=== PATIENT | female | born 1965 | race Caucasian/White ===

== ENCOUNTER → 2024-03-12 11:56 | Outpatient (CLI) | payer OTHER, SELFPAY ==
--- NOTE | 2024-03-12 13:31 | DI.CT.S_ITS ---
PROCEDURE: CT CHEST ABD PEL W CON INDICATIONS: MALIGNANT MELANOMA, METASTATIC TECHNIQUE: After the administration of intravenous contrast, 5 mm thick sections acquired from the lung apices to the symphysis. 5 mm coronal and sagittal reformats were performed, with additional 7 mm MIP reformats through the lungs. For radiation dose reduction, the following was used: automated exposure control, adjustment of mA and/or kV according to patient size. COMPARISON: Outside Facility, CT, CT CHEST ABD PEL WO CON, 07/09/2018, 9:31. FINDINGS: Image quality: Excellent. CHEST: Lower Neck: No enlarged lymph nodes. Thyroid: Normal CT appearance. Axillae: No enlarged lymph nodes. Chest Wall: No suspicious chest wall lesions. Lungs and Pleura: There is a new round, solid, spiculated, 7 mm nodule in the right lung base, 5/272. There is a new 4 mm solid subpleural nodule in the anterior left upper lobe, 5/171. Several scattered areas of focal fissural thickening bilaterally, presumably intrapulmonary lymph nodes. A small area of slightly irregular pleural thickening is present in the right lower lung posteriorly, 5/260. No pleural effusions. Central and peripheral airways are normal without bronchial wall thickening or bronchiectasis. Heart: Heart size is normal. No pericardial effusion. Thoracic Vessels: The aorta and pulmonary arteries demonstrate normal size. Mediastinum and Silvina: No enlarged lymph nodes. Esophagus: No wall thickening. Tiny hiatal hernia. ABDOMEN: Liver: Hypodense lesion at the liver dome with irregular margins and nodular peripheral enhancement measures 1.8 cm, presumably a hemangioma. Several subcentimeter scattered hypodensities in the right hepatic lobe too small to characterize. Hypodensity along the posterior subcapsular right lobe is indeterminate. An 8 mm hypodensity in the segment four left lobe is likely a cyst. Gallbladder: No wall thickening or calcified stones. Biliary ducts: No biliary dilation. Pancreas: Normal size and morphology without visible ductal dilatation or inflammation. Spleen: Size is within normal limits. Adrenal Glands: No adrenal nodules. Kidneys and Ureters: Symmetric enhancement. No nephrolithiasis or hydronephrosis. No hydroureter. A thin-walled cyst arises from the upper pole of the right kidney and measures about 7 cm in diameter. Stomach and Bowel: Stomach and small bowel loops are normal caliber. Mildly increased quantity of solid stool throughout the colon. No suspicious bowel wall thickening. The appendix was not seen. Peritoneum: No abnormal intraperitoneal fluid. No free air. Ventral Wall: Tiny fat containing umbilical hernia. No suspicious soft tissue nodules. Abdominal Nodes: No retroperitoneal or mesenteric adenopathy by size criteria. Vessels: The abdominal aorta, IVC, and portal vein are of normal caliber. PELVIS: Pelvic Organs: Uterus and ovaries are normal. Bladder: Decompressed urinary bladder. Pelvic Nodes: Mild surgical scarring in the left inguinal region. No pelvic adenopathy. Miscellaneous: No inguinal hernias are seen. Bones: No aggressive osseous abnormality. IMPRESSION: New 7 mm lung nodule in the right lower lobe with morphology suspicious for neoplasm, metastatic disease or primary. New, indeterminate left upper lobe 4 mm solid nodule too small to characterize. Scattered hepatic hypodensities, many too small to characterize. One is diagnostic of a benign hemangioma. If there is concern for metastatic disease, liver MRI with Eovist is recommended. No evidence of suspicious adenopathy in the chest, abdomen, or pelvis. Dictated by: Eleanor Choi M.D. on 03/15/2024 at 12:16 Approved by: Eleanor Choi M.D. on 03/15/2024 at 13:08
== END ==
PROVIDERS: PCP Naturopath; Referring Provider Internal Medicine; Visit Provider Internal Medicine
DX: C43.9 Malignant melanoma of skin, unspecified (principal); R91.8 Other nonspecific abnormal finding of lung field; K76.9 Liver disease, unspecified
CPT/HCPCS: 71260; 74177; Q9967

== ENCOUNTER → 2024-08-28 12:25 | Outpatient (CLI) | payer OTHER, SELFPAY ==
--- NOTE | 2024-08-28 12:27 | DI.CT.S_ITS ---
PROCEDURE: CT CHEST ABD PEL W CON INDICATIONS: malignant melanoma TECHNIQUE: After the administration of intravenous contrast, 5 mm thick sections acquired from the lung apices to the symphysis. 5 mm coronal and sagittal reformats were performed, with additional 7 mm MIP reformats through the lungs. For radiation dose reduction, the following was used: automated exposure control, adjustment of mA and/or kV according to patient size. COMPARISON: [facility], CT, CT CHEST ABD PEL W CON, 03/12/2024, 13:23. FINDINGS: Image quality: Excellent. Thyroid: Within normal limits. Cardiac: Heart size within normal limits. No pericardial effusion. Aorta: Thoracic aortic diameter within normal limits. Pulmonary Artery: Main pulmonary artery diameter within normal limits. Lungs: Interval increase in size of previously detected pulmonary nodules. The reference nodules are noted below on series 5: * Image 193 - 11 mm (previously 6 mm) perifissural solid nodule in the superior segment of the right lower lobe * Image 196 - 8 mm (previously 6 mm) perifissural solid nodule in the right upper lobe * Image 202 - 9 mm (previously 2 mm) solid nodule in the lingula * Image 203 - 8 mm (previously 4 mm) solid nodule in the lingula Pleura: No pneumothorax or pleural effusion. Airways: The trachea and mainstem bronchi are patent. Lymph Nodes: No mediastinal, hilar, or axillary lymphadenopathy. Esophagus: Small hiatal hernia. Peritoneum: No pneumoperitoneum or ascites. Bones: No acute osseous abnormality. Grade 1 anterolisthesis of L4 on L5 (4/76). No lytic or blastic lesion. Liver: Normal in size and contour. Re-identified subcentimeter hypodense lesions, too small to characterize. Gallbladder: No stones or pericholecystic fluid. Biliary tree: No intrahepatic or extrahepatic biliary ductal dilatation. Pancreas: Within normal limits. Spleen: Normal in size and contour. Kidneys: No hydronephrosis or obstructive urolithiasis. Right superior pole cortical 6.5 cm simple cyst (). Adrenals: No adrenal nodularity. Bladder: Normal in size and wall thickness. : Anteverted uterus with small amount of endometrial fluid. Stomach: Normal in size and contour. Bowel: Normal in diameter without any bowel obstruction. Nonvisualization of the appendix without secondary signs of acute appendicitis. Oral contrast within the small bowel. Lymph Nodes: No retroperitoneal, mesenteric, or inguinal lymphadenopathy. Vascular: No abdominal aortic aneurysm. The visualized arterial vasculature is patent. Soft Tissues: No acute abnormality. IMPRESSION: 1. Interval increase in size of pulmonary nodules, which may represent metastatic disease. 2. Indeterminate hepatic lesions. MRI abdomen with and without contrast with Eovist recommended for evaluation. 3. Small amount of the uterine endometrial fluid. Nonemergent pelvic ultrasound recommended for evaluation of possible endometrial hyperplasia or other etiology. Dictated by: Godfrey Newberry M.D. on 08/28/2024 at 15:36 Approved by: Godfrey Newberry M.D. on 08/28/2024 at 15:49
--- NOTE | 2024-08-28 12:27 | DI.CT.S_ITS ---
PROCEDURE: CT SOFT TISSUE NECK W CON INDICATIONS: malignant melanoma TECHNIQUE: After the administration of intravenous contrast, 3.0 mm axial sections acquired from the sella to the aortic arch. Additional oblique axial 3.0 mm sections acquired through the pharynx. 3 mm thick coronal and sagittal reformats were generated. For radiation dose reduction, the following was used: automated exposure control. COMPARISON: Outside Facility, NM, NM PET CT BONE WHOLE BODY, 06/13/2024, 9:20. [facility], CT, CT CHEST ABD PEL W CON, 03/12/2024, 13:23. FINDINGS: Image quality: Excellent. Bone: No acute fracture or dislocation. Ununited posterior arch of C1, an anatomic variant (2/24). Endplate sclerosis and flowing anterior osteophyte formation at the C5-C7 levels. Eburnation of the condylar processes of the mandible, which can be seen with temporomandibular joint osteoarthritis. Alignment: Straightening of the cervical lordosis. Muscles: Overall muscle bulk is preserved. Neck spaces: The parotid, financial assistance specialist, submandibular, parapharyngeal, pharyngeal mucosal, retropharyngeal, and perivertebral spaces are within normal limits. Orbits: Optic globes, intraconal/extraconal fat spaces, and extraocular muscles within normal limits. No retrobulbar mass. Thyroid gland: Within normal limits. Airway: Visualized trachea within normal limits. Esophagus: No abnormal mural thickening of the visualized esophagus. Lymph nodes: No cervical or medial supraclavicular lymphadenopathy. Vessels: No aneurysmal dilatation of the visualized vasculature. Lung apices: No pneumothorax in the visualized lung apices. Sinuses: Air-fluid level in the left maxillary sinus with hyperostosis and internal hyperdense content (2/14). Visualized paranasal sinuses, mastoid air cells, and middle ear cavities are clear. Dentition: Within normal limits. Soft tissues: No acute abnormality. Other: 1.1 x 2.5 x 1.4 cm enhancing ovoid lesion in the left cerebellar hemisphere with adjacent vasogenic edema (2/11; 4/44) and mild mass effect on the 4th ventricle. 0.5 cm enhancing focus in the right temporal lobe (2/4). IMPRESSION: 1. At least 2 intraparenchymal foci, 1 of which is associated with vasogenic edema in the left cerebellar hemisphere and mild mass effect on the 4th ventricle. These foci may represent metastatic disease. MRI brain with and without contrast recommended for further evaluation. 2. No other acute CT abnormality of the neck. Two unsuccessful attempts were made to communicate these findings to the ordering provider. Given the findings, the patient was contacted on 08/28/2024 at 3:16 p.m. and directed to head over to [facility] (nearest hospital location for the patient) for further evaluation. Dictated by: Godfrey Newberry M.D. on 08/28/2024 at 14:59 Approved by: Godfrey Newberry M.D. on 08/28/2024 at 15:36
== END ==
PROVIDERS: PCP Naturopath; Referring Provider Internal Medicine; Visit Provider Internal Medicine
DX: C43.9 Malignant melanoma of skin, unspecified (principal); G93.9 Disorder of brain, unspecified; G93.6 Cerebral edema; R91.8 Other nonspecific abnormal finding of lung field; K76.9 Liver disease, unspecified; K44.9 Diaphragmatic hernia without obstruction or gangrene
CPT/HCPCS: 70491; 71260; 74177; Q9967

== ENCOUNTER → 2024-12-12 12:57 | Outpatient (CLI) | payer OTHER, SELFPAY ==
--- NOTE | 2024-12-12 | DI.RAD.S_ITS ---
PROCEDURE: XR ABDOMEN MIN 2V INDICATIONS: SHUNT SERIES TECHNIQUE: 2 views of the abdomen were acquired. COMPARISON: None. FINDINGS: Chest: Multiple pulmonary nodules suspicious for metastatic disease Bowel: No pneumoperitoneum. The bowel gas pattern is normal. Soft tissues: Only frontal images are submitted. SCOOPER shunt catheter tip overlies the central calvarial region and descends along the right neck, right anterior chest and abdomen entering the mid abdomen and is coiled in the mid abdomen. No evidence of shunt disruption. Bones: No suspicious bony abnormalities. IMPRESSION: SCOOPER shunt catheter is normally positioned without evidence of disruption. Multiple large pulmonary nodule suspicious for metastatic disease Dictated by: Kobi Avery M.D. on 12/13/2024 at 11:29 Approved by: Kobi Avery M.D. on 12/13/2024 at 11:31
--- NOTE | 2024-12-12 12:59 | DI.CT.S_ITS ---
PROCEDURE: CT CHEST ABD PEL W CON INDICATIONS: Melanoma TECHNIQUE: After the administration of intravenous contrast, 5 mm thick sections acquired from the lung apices to the symphysis. 5 mm coronal and sagittal reformats were performed, with additional 7 mm MIP reformats through the lungs. For radiation dose reduction, the following was used: automated exposure control, adjustment of mA and/or kV according to patient size. COMPARISON: [facility], CT, CT CHEST ABD PEL W CON, 08/28/2024, 13:55. FINDINGS: Image quality: Excellent. CHEST: Lower Neck: No enlarged lymph nodes. Thyroid: No thyroid nodules which require sonographic follow up, per consensus guidelines. Axillae: No enlarged lymph nodes. Chest Wall: Unremarkable. Lungs and Pleura: Compared to previous study, there is interval significant increase in size and number of bilateral pulmonary metastatic lesions with the largest lesion now measures 5 x 3.4 cm in size in right upper lobe series 5, image 117. Largest lesion in left upper lobe measures 2.3 x 2.4 cm in size series 5, image 128. Largest lesion in right middle lobe measures 1.5 x 1.6 cm in size series 5, image 215. Largest lesion in right lower lobe measures 2.6 x 3 cm in size series 5, image 227. Largest lesion in left lower lobe measures 1.9 x 1.6 cm in size series 5, image 206. There is no pleural effusion or pneumothorax. Heart: Heart size is enlarged. No pericardial effusion. Thoracic Vessels: The aorta and pulmonary arteries demonstrate normal size. Mediastinum and Silvina: No enlarged lymph nodes. Esophagus: No wall thickening. No hiatal hernia. ABDOMEN: Liver: Possible Hem angioma versus metastatic lesion in right hepatic dome series 2, image 88 unchanged from prior study. Focal hyperenhancement involving more inferior aspect of right hepatic lobe slightly more prominent in size compared to prior study series 2, image 96. Well-circumscribed hypodensities also seen scattered in liver parenchyma. Gallbladder: No radiopaque gallstones or wall thickening. Biliary ducts: No biliary dilation. Pancreas: No ductal dilation. Spleen: Size is within normal limits. Adrenal Glands: No adrenal nodules. Kidneys and Ureters: No hydronephrosis. Large upper pole right renal cyst is again seen and unchanged. No solid mass. No complex renal cystic lesion which requires follow up. Stomach and Bowel: Normal colonic caliber, without significant wall thickening. Moderate fecal stasis in the colon is seen. Peritoneum: No abnormal intraperitoneal fluid. No free air. Ventral Wall: No significant ventral hernia. Abdominal Nodes: No retroperitoneal or mesenteric adenopathy by size criteria. Vessels: Aorta and inferior vena cava are normal in size. PELVIS: Pelvic Organs: Unremarkable. Bladder: No bladder wall thickening, accounting for underdistention. Pelvic Nodes: No enlarged lymph nodes. Miscellaneous: No inguinal hernias are seen. Bones: No aggressive osseous abnormality. IMPRESSION: 1. Interval significant increase in size and numbers of bilateral pulmonary lesions concerning for progression of pulmonary metastatic disease. 2. 2 hyperdensities in right hepatic lobe as above which may represent hemangioma. Liver metastatic disease cannot be excluded. MRI of liver can be done for further evaluation if indicated. 3. Other findings are not significantly changed from prior study. Dictated by: Alvin Joseph M.D. on 12/12/2024 at 15:56 Approved by: Alvin Joseph M.D. on 12/12/2024 at 16:04
--- NOTE | 2024-12-12 12:59 | DI.CT.S_ITS ---
PROCEDURE: CT SOFT TISSUE NECK W CON INDICATIONS: Melanoma TECHNIQUE: After the administration of intravenous contrast, 3.0 mm axial sections acquired from the sella to the aortic arch. Additional oblique axial 3.0 mm sections acquired through the pharynx. 3 mm thick coronal and sagittal reformats were generated. For radiation dose reduction, the following was used: automated exposure control. COMPARISON: [facility], CT, CT HEAD/BRAIN WO CON, 12/12/2024, 13:44. [facility], CT, CT SOFT TISSUE NECK W CON, 08/28/2024, 13:55. FINDINGS: Image quality: Excellent. Lymph nodes: No enlarged lymph nodes seen throughout the neck. Vessels: Visualized vasculature appears patent. Neck spaces: The oropharynx, nasopharynx, and pharynx demonstrate no mucosal lesions. The vocal cords, false vocal cords, pyriform sinuses, epiglottis, vallecula, and tongue base all appear normal. Extramucosal spaces appear unremarkable. Glands: The parotid and submandibular glands appear normal. Thyroid gland is within normal limits. Miscellaneous: Peripherally enhancing lesion in right frontal lobe is seen, better evaluated on CT of head performed on the same day. Postsurgical changes are noted in left posterior fossa with encephalomalacia in left cerebellum. Multiple enhancing soft tissue density nodules are noted in included bilateral upper lung altamirano consistent with extensive metastatic disease. Superficial soft tissues appear normal. [employer] shunt catheter is noted. Bones: No suspicious bony lesions. Mucosal thickening in left maxillary sinus is seen. Bilateral mastoids are well aerated. IMPRESSION: 1. Finding is consistent with intracranial metastatic disease and metastatic disease in included portion of bilateral lung altamirano. Please refer to CT of head and CT of chest, abdomen and pelvis studies from the same day for more detailed workup. 2. No neck soft tissue lymphadenopathy. Airway is patent. 3. Left maxillary sinusitis. Dictated by: Alvin Joseph M.D. on 12/12/2024 at 15:41 Approved by: Alvin Joseph M.D. on 12/12/2024 at 15:49
--- NOTE | 2024-12-12 12:59 | DI.CT.S_ITS ---
PROCEDURE: CT HEAD/BRAIN WO CON INDICATIONS: Melanoma TECHNIQUE: Noncontrast 4.5 mm thick angled axial sections acquired from the foramen magnum to the vertex, with coronal and sagittal reformats. For radiation dose reduction, the following was used: automated exposure control, adjustment of mA and/or kV according to patient size. COMPARISON: [facility], CT, CT CHEST ABD PEL W CON, 08/28/2024, 13:55. [facility], CT, CT CHEST ABD PEL W CON, 12/12/2024, 13:44. [facility], CT, CT HEAD WITHOUT CONTRAST, 08/28/2024, 17:53. FINDINGS: Image quality: Diagnostic. CSF spaces: Basal cisterns are patent. No extra-axial fluid collections. Vasogenic edema in the right frontal lobe causes mass effect on the frontal horn of the right lateral ventricle. Interval placement of a intraventricular shunt via a right posterior temporal approach. Brain: Previously, there was hyperdensity in the right frontal lobe from intrinsically hemorrhagic metastatic melanoma. Multiple bilateral metastatic melanoma lesions were present, including a large 1 in the cerebellum. On the current study, there is evidence of interval placement of a right-sided intraventricular shunt which enters through a right posterior temporal defect and extends to the midline. There is a large centrally necrotic right frontal mass measuring approximately 2.5 cm. Also present is a 2nd lesion which is also centrally necrotic, also in the right frontal lobe, measuring 2.4 cm. There is extensive vasogenic edema related to this mass. There is mass effect on the right lateral ventricle. Additionally, there has been interval left occipital craniotomy and removal of a large left cerebellar lesion with postoperative encephalomalacia present. There is no acute hemorrhage. There is no evidence of acute stroke. The vasogenic edema was not present on the previous study. Skull and face: Calvarium and visualized facial bones are intact, without suspicious lesions. Sinuses: Visualized sinuses and mastoids are clear. IMPRESSION: 1. Known intracranial metastatic disease with numerous previous melanoma metastatic lesions identified. 2. Interval left occipital craniotomy and resection of a left cerebellar lesion and expected postsurgical change. 3. A ventricular shunt catheter is been placed, coursing to midline, with successful location and no hydrocephalus. 4. There are now 2 large centrally necrotic right frontal metastatic lesions with extensive vasogenic edema and mass effect on the frontal horn of the right lateral ventricle. Unfortunately, no recent previous studies are available for comparison to identify whether this is an interval change from recent prior studies. Comment: Also noted is development of extensive pulmonary metastatic lesions. Additional comment: This patient lives on [facility]. She has been sent to the emergency department for evaluation based on the right frontal lobe vasogenic edema. Findings were discussed with Dr. Erazo, of the emergency department, on 12/12/2024 at 1519 hours. Dictated by: Dimitri Ledbetter M.D. on 12/12/2024 at 15:12 Approved by: Dimitri Ledbetter M.D. on 12/12/2024 at 15:30
== END ==
PROVIDERS: PCP Naturopath; Referring Provider Internal Medicine; Visit Provider Internal Medicine
DX: C43.9 Malignant melanoma of skin, unspecified (principal); C79.31 Secondary malignant neoplasm of brain; C78.01 Secondary malignant neoplasm of right lung; C78.02 Secondary malignant neoplasm of left lung; G93.6 Cerebral edema; G93.89 Other specified disorders of brain; J32.0 Chronic maxillary sinusitis; I51.7 Cardiomegaly; N28.1 Cyst of kidney, acquired; K76.9 Liver disease, unspecified; Z98.2 Presence of cerebrospinal fluid drainage device
CPT/HCPCS: 70450; 70491; 71260; 74019; 74177; Q9967

== ENCOUNTER 2024-12-12 15:14 | Emergency (ER) | payer OTHER, SELFPAY ==
[2024-12-12 15:31] VITALS: BP 159/80; PULSE 79; RESP 17; O2SAT 98; BMI 27.3
--- NOTE | 2024-12-12 15:49 | ED_ITS ---
HPI - Recheck/Abnormal Lab/Rx General Chief Complaint: Recheck/Abnormal Lab/Rx Stated Complaint: Headache, cancer patient Time Seen by Provider: 12/12/24 15:16 Source: patient Mode of arrival: Ambulatory History of Present Illness HPI narrative: 59-year-old female history of melanoma on 2 chemo agents with recent craniotomy at a [facility] with shunt placement presents today with headache dizziness lightheadedness was actually scheduled for outpatient CT scans she was notified to come to the ER emergently based on the findings. Patient denies fever chills nausea vomiting diarrhea cough runny nose sore throat chest pain shortness of breath stiff neck rash difficulty ambulating weakness unsteady gait or urinary complaints. Other than what is stated 14 point review of system is negative. Related Data Previous Rx's ?Medication ?Instructions ?Recorded dexamethasone 2 mg tablet 2 mg PO BID #30 tabs 5 levetiracetam 750 mg tablet 750 mg PO BID #30 tabs 03/29 (Keppra) Allergies Allergy/AdvReac Type Severity Reaction Status Date / Time Sulfa (Sulfonamide Allergy Intermediate Rash Verified 12/12/24 15:23 Antibiotics) Iodinated Contrast Media Allergy Verified 12/12/24 15:23 oxycodone AdvReac Intermediate Nausea Verified 12/12/24 15:23 Review of Systems Review of Systems ROS Unobtainable: All systems reviewed & are unremarkable except as noted in HPI and below Patient History Social History Smoking Status: Never smoker Smoking Status: Never smoker Exam Narrative Exam Narrative: GENERAL: [59] year old patient appears stated age. Well-developed patient, in mild distress. HEAD: Atraumatic. Normocephalic. EYES: Pupils equal round and reactive. Extraocular motions intact. No scleral icterus. No injection or drainage. ENT: Nose without bleeding, purulent drainage. Throat without erythema, tonsilla r hypertrophy or exudate. Airway patent. NECK: Trachea midline. Non tender CARDIOVASCULAR: Regular rate and rhythm without murmurs, gallops, or rubs. RESPIRATORY: Clear to auscultation. Breath sounds equal bilaterally. No wheezes, rales, or rhonchi. GASTROINTESTINAL: Abdomen soft, non-tender, nondistended. EXTREMITIES: No edema or joint tenderness. BACK: Nontender without deformity or crepitance. No flank tenderness. NEURO: AOx3. GCS 15 nonfocal neuro exam negative pronator drift [id number] opposite to heal rapid alternating movements all intact 5/5 upper and lower extremity strength SKIN: No rash or erythema of visible areas Initial Vital Signs Initial Vital Signs: Vital Signs Pulse Rate 79 12/12/24 15:31 Respiratory Rate 17 12/12/24 15:31 Blood Pressure 159/80 H 12/12/24 15:31 Pulse Oximetry 98 12/12/24 15:31 Oxygen Delivery Method Room Air 12/12/24 15:31 Course Vital Signs Vital signs: Vital Signs - 8 hr 12/12/24 15:31 Pulse Rate 79 Respiratory Rate 17 Blood Pressure 159/80 H Pulse Oximetry 98 Oxygen Delivery Method Room Air MDM - Recheck/Abnormal Lab/Rx Imaging Data CT scan - head: Radiologist's Impression: [address] [address] [address] Scan Report Signed Patient: Leslie Acosta MR#: [id number] : 1965 Acct:[id number] Age/Sex: 59 / F Date of Service: 12/12/24 Loc: CT Accession Number: [id number] Procedure: CT head/brain wo con Ordering Provider: Quinn Lock PROCEDURE: CT HEAD/BRAIN WO CON INDICATIONS: Melanoma TECHNIQUE: Noncontrast 4.5 mm thick angled axial sections acquired from the foramen magnum to the vertex, with coronal and sagittal reformats. For radiation dose reduction, the following was used: automated exposure control, adjustment of mA and/or kV according to patient size. COMPARISON: [facility], CT, CT CHEST ABD PEL W CON, 08/28/2024, 13:55. [facility], CT, CT CHEST ABD PEL W CON, 12/12/2024, 13:44. [facility], CT, CT HEAD WITHOUT CONTRAST, 08/28/2024, 17:53. FINDINGS: Image quality: Diagnostic. CSF spaces: Basal cisterns are patent. No extra-axial fluid collections. Vasogenic edema in the right frontal lobe causes mass effect on the frontal horn of the right lateral ventricle. Interval placement of a intraventricular shunt via a right posterior temporal approach. Brain: Previously, there was hyperdensity in the right frontal lobe from intrinsically hemorrhagic metastatic melanoma. Multiple bilateral metastatic melanoma lesions were present, including a large 1 in the cerebellum. On the current study, there is evidence of interval placement of a right-sided intraventricular shunt which enters through a right posterior temporal defect and extends to the midline. There is a large centrally necrotic right frontal mass measuring approximately 2.5 cm. Also present is a 2nd lesion hich is also centrally necrotic, also in the right frontal lobe, measuring 2.4 cm. There is extensive vasogenic edema related to this mass. There is mass effect on the right lateral ventricle. Additionally, there has been interval left occipital craniotomy and removal of a large left cerebellar lesion with postoperative encephalomalacia present. There is no acute hemorrhage. There is no evidence of acute stroke. The vasogenic edema was not present on the previous study. Skull and face: Calvarium and visualized facial bones are intact, without suspicious lesions. Sinuses: Visualized sinuses and mastoids are clear. IMPRESSION: 1. Known intracranial metastatic disease with numerous previous melanoma meta static lesions identified. 2. Interval left occipital craniotomy and resection of a left cerebellar lesion and expected postsurgical change. 3. A ventricular shunt catheter is been placed, coursing to midline, with successful location and no hydrocephalus. 4. There are now 2 large centrally necrotic right frontal metastatic lesions with extensive vasogenic edema and mass effect on the frontal horn of the right lateral ventricle. Unfortunately, no recent previous studies are available for comparison to identify whether this is an interval change from recent prior studies. Comment: Also noted is development of extensive pulmonary metastatic lesions. Additional comment: This patient lives on [facility]. She has been sent to the emergency department for evaluation based on the right frontal lobe vasogenic edema. Findings were discussed with Dr. Erazo, of the emergency department, on 12/12/[address] - cervical spine: Radiologist's Impression: [place] [id number] CT Scan Report Signed Patient: Leslie Acosta MR#: [id number] : 1965 Acct:[id number] Age/Sex: 59 / F Date of Service: 12/12/24 Loc: CT Accession Number: [id number] Procedure: CT soft tissue neck w con Ordering Provider: Quinn Lock PROCEDURE: CT SOFT TISSUE NECK W CON INDICATIONS: Melanoma TECHNIQUE: After the administration of intravenous contrast, 3.0 mm axial sections acquired from the sella to the aortic arch. Additional oblique axial 3.0 mm sections acquired through the pharynx. 3 mm thick coronal and sagittal reformats were generated. For radiation dose reduction, the following was used: automated exposure control. COMPARISON: [facility], CT, CT HEAD/BRAIN WO CON, 12/12/2024, 13:44. [facility], CT, CT SOFT TISSUE NECK W CON, 08/28/2024, 13:55. FINDINGS: Image quality: Excellent. Lymph nodes: No enlarged lymph nodes seen throughout the neck. Vessels: Visualized vasculature appears patent. Neck spaces: The oropharynx, nasopharynx, and pharynx demonstrate no mucosal le sions. The vocal cords, false vocal cords, pyriform sinuses, epiglottis, vallecula, and tongue base all appear normal. Extramucosal spaces appear unremarkable. Glands: The parotid and submandibular glands appear normal. Thyroid gland is within normal limits. Miscellaneous: Peripherally enhancing lesion in right frontal lobe is seen, better evaluated on CT of head performed on the same day. Postsurgical changes are noted in left posterior fossa with encephalomalacia in left cerebellum. Multiple enhancing soft tissue density nodules are noted in included bilateral upper lung altamirano consistent with extensive metastatic disease. Superficial soft tissues appear normal. [employer] shunt catheter is noted. Bones: No suspicious bony lesions. Mucosal thickening in left maxillary sinus is seen. Bilateral mastoids are well aerated. IMPRESSION: 1. Finding is consistent with intracranial metastatic disease and metastatic disease in included portion of bilateral lung altamirano. Please refer to CT of head and CT of chest, abdomen and pelvis studies from the same day for more detailed workup. 2. No neck soft tissue lymphadenopathy. Airway is patent. 3. Left maxillary sinusitis. CT scan - abdomen/pelvis: Radiologist's Impression: [place] [address] CT Scan Report Signed Patient: Leslie Acosta MR#: [id number] : 1965 Acct:[id number] Age/Sex: 59 / F Date of Service: 12/12/24 Loc: CT Accession Number: [id number] Procedure: CT chest abd pel w con Ordering Provider: Quinn Lock PROCEDURE: CT CHEST ABD PEL W CON INDICATIONS: Melanoma TECHNIQUE: After the administration of intravenous contrast, 5 mm thick sections acquired from the lung apices to the symphysis. 5 mm coronal and sagittal reformats were performed, with additional 7 mm MIP reformats through the lungs. For radiation dose reduction, the following was used: automated exposure control, adjustment of mA and/or kV according to patient size. COMPARISON: [facility], CT, CT CHEST ABD PEL W CON, 08/28/2024, 13:55. FINDINGS: Image quality: Excellent. CHEST: Lower Neck: No enlarged lymph nodes. Thyroid: No thyroid nodules which require sonographic follow up, per consensus guidelines. Axillae: No enlarged lymph nodes. Chest Wall: Unremarkable. Lungs and Pleura: Compared to previous study, there is interval significant increase in size and number of bilateral pulmonary metastatic lesions with the largest lesion now measures 5 x 3.4 cm in size in right upper lobe series 5, image 117. Largest lesion in left upper lobe measures 2.3 x 2.4 cm in size series 5, image 128. Largest lesion in right middle lobe measures 1.5 x 1.6 cm in size series 5, image 215. Largest lesion in right lower lobe measures 2.6 x 3 cm in size series 5, image 227. Largest lesion in left lower lobe measures 1.9 x 1.6 cm in size series 5, image 206. There is no pleural effusion or pneumothorax. Heart: Heart size is enlarged. No pericardial effusion. Thoracic Vessels: The aorta and pulmonary arteries demonstrate normal size. Mediastinum and Silvina: No enlarged lymph nodes. Esophagus: No wall thickening. No hiatal hernia. ABDOMEN: Liver: Possible Hem angioma versus metastatic lesion in right hepatic dome series 2, image 88 unchanged from prior study. Focal hyperenhancement involving more inferior aspect of right hepatic lobe slightly more prominent in size compared to prior study series 2, image 96. Well-circumscribed hypodensities also seen scattered in liver parenchyma. Gallbladder: No radiopaque gallstones or wall thickening. Biliary ducts: No biliary dilation. Pancreas: No ductal dilation. Spleen: Size is within normal limits. Adrenal Glands: No adrenal nodules. Kidneys and Ureters: No hydronephrosis. Large upper pole right renal cyst is again seen and unchanged. No solid mass. No complex renal cystic lesion which requires follow up. Stomach and Bowel: Normal colonic caliber, without significant wall thickening. Moderate fecal stasis in the colon is seen. Peritoneum: No abnormal intraperitoneal fluid. No free air. Ventral Wall: No significant ventral hernia. Abdominal Nodes: No retroperitoneal or mesenteric adenopathy by size criteria. Vessels: Aorta and inferior vena cava are normal in size. PELVIS: Pelvic Organs: Unremarkable. Bladder: No bladder wall thickening, accounting for underdistention. Pelvic Nodes: No enlarged lymph nodes. Miscellaneous: No inguinal hernias are seen. Bones: No aggressive osseous abnormality. IMPRESSION: 1. Interval significant increase in size and numbers of bilateral pulmonary lesions concerning for progression of pulmonary metastatic disease. 2. 2 hyperdensities in right hepatic lobe as above which may represent hemangioma. Liver metastatic disease cannot be excluded. MRI of liver can be done for further evaluation if indicated. 3. Other findings are not significantly changed from prior study. MDM Narrative Medical decision making narrative: Vital signs, nurse triage note, medication list, previous ER visits, and all imaging studies reviewed. CT chest showed all significant increase in size and number of bilateral pulmonary lesions concerning for progression of pulmonary metastatic disease. Two hyperdense densities in right hepatic lobe as above which may represent hemangioma. Liver metastatic disease can not be excluded. Soft tissue neck showed findings consistent with intracranial metastatic disease and metastatic disease including portions of bilateral lung altamirano no neck soft tissue lymphedema airways patent. Left maxillary sinusitis. CT head showed no intracranial metastatic disease with numerous previous melanoma metastatic lesions identified. Interval left occipital craniotomy and resection of of left cerebellar lesion and expected postsurgical change. A ventricular shunt catheter placed coursing to midline was successful in location and no hydrocep halus. There are now 2 large centrally necrotic right frontal metastatic lesions with extensive vasogenic edema and mass effect on the frontal horn of the right lateral ventricle. No previous recent studies available for comparison to whether this is an interval change from recent prior study. Case discussed with neurosurgeon at [facility] who wanted patient to be started on Keppra and dexamethasone and to have patient follow up with both himself and oncology and they will call her specifically tomorrow for follow up care. 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 Please take your medicines as directed. Follow up with [facility] oncology and neurosurgery. Prescriptions: New levetiracetam [Keppra] 750 mg tablet 750 mg PO BID Qty: 30 0RF dexamethasone 2 mg tablet 2 mg PO BID Qty: 30 0RF Referrals: Aschtgen,Dean D, [place] [Primary Care Provider, Naturopathy] Stand Alone Forms: Patient Portal/API
[2024-12-12 16:42] LABS: Add Manual Diff / Slide Review NO; Hematocrit 35.8 % (36-46); Hemoglobin 12.0 g/dL (12.0-16.0); Lymphocytes Absolute Auto 1000 /uL (1100-4500); Mean Corpuscular HGB Conc 33.5 % (30-36); Mean Corpuscular Hemoglobin 28.6 PG (26-34); Mean Corpuscular Volume 85.2 fL (80-100); Platelet Count 314 X10^3/uL (150-400)
[2024-12-12 16:49] LABS: Alanine Aminotransferase 25 IU/L (<35); Albumin 4.5 g/dL (3.5-5.0); Albumin Globulin Ratio 1.3 (1.0-2.8); Alkaline Phosphatase 57 U/L (38-126); Blood Urea Nitrogen 15 mg/dL (7-17); Calcium 9.8 mg/dL (8.4-10.2); Carbon Dioxide 25 mmol/L (22-32); Chloride 104 mmol/L (98-107); Estimated Glomerular Filt Rate > 60 mL/min (>60); Globulin 3.6 g/dL (1.7-4.1); Glucose 111 mg/dL (70-99); HEMOLYSIS < 15 (0-50); Potassium 4.1 mmol/L (3.4-5.1); Sodium 137 mmol/L (137-145); Total Protein 8.1 g/dL (6.3-8.2)
[2024-12-12 17:04] LABS: INR 1.1 (0.9-1.3); Prothrombin Time 12.5 SECONDS (9.4-12.5)
[2024-12-12 17:21] VITALS: BP 146/86; PULSE 86; RESP 15; O2SAT 94
== END 2024-12-12 17:23 | disposition home or self-care (01) ==
PROVIDERS: Emergency Provider Family Medicine; PCP Naturopath
DX: C79.31 Secondary malignant neoplasm of brain (principal); C43.9 Malignant melanoma of skin, unspecified; R91.8 Other nonspecific abnormal finding of lung field; R93.2 Abnormal findings on diagnostic imaging of liver and biliary tract; Z98.2 Presence of cerebrospinal fluid drainage device; Z98.890 Other specified postprocedural states
CPT/HCPCS: 70450; 70491; 71260; 74019; 74177; 80053; 85025; 85610; 99283; 99284; Q9967